=== PATIENT | female | born 1970 ===

== ENCOUNTER 2017-04-15 09:02 | Day surgery (SDC) | payer OTHER ==
[~2017-04-15 09:02] MED LIST: Bupivacaine HCl 0.25% PF (10 ml) Inj ONE; Lidocaine/Epinephrine 1% 1:100000 10 ML IJ ONE; ceFAZolin IV 1 gm in Dextrose 0 GM/0 ML BAG IVPB ONE
[2017-04-15] MEDS ORDERED: ceFAZolin IV 2 gm in Dextrose 2 GM/50 ML BAG IVPB ONE (10:23)
[2017-04-15] MEDS ORDERED: Midazolam 2 MG/2 ML VIAL ONE (10:30)
[2017-04-15] MEDS ORDERED: Propofol 10 mg/ml Inj (20 ML) ONE (10:32)
--- NOTE | 2017-04-15 11:08 | PCM.SURG1 ---
Surgeon's Initial Post Op Note - Surgeon's Notes Surgeon: Dr. Haro [employer] Equipment Erector: PGY1 Pre-Operative Diagnosis: Sebaceous cyst of lower anterior thorax Operative Findings: see op note Post-Operative Diagnosis: as above Operation Performed: excision of sebaceous cyst Specimen/Specimens Removed: sebaceous cyst Estimated Blood Loss: EBL {In ML}: 3 Drains Used: No Drains Post-Op Condition: Good Date of Surgery/Procedure: 04/15/17 Time of Surgery/Procedure: 11:07
[2017-04-15] MEDS ORDERED: HYDROmorphone 0.5 mg/0.5 ml ISec IVP PRN (11:38)
[2017-04-15] MEDS ORDERED: Oxycodone/Acetaminophen 5/325 mg Tab PO ONE (12:00)
[2017-04-15 12:46] VITALS: O2SAT 100
[2017-04-15 13:56] VITALS: PULSE 79; RESP 16
[2017-04-15 13:58] VITALS: BP 108/73; TEMP 97.6
--- NOTE | 2017-04-16 23:53 | OP ---
PROCEDURE DATE: 04/15/2017. PREOPERATIVE DIAGNOSIS: Sebaceous cyst of right lower chest. POSTOPERATIVE DIAGNOSIS: Excision of sebaceous cyst of the right lower chest, 3 x 3 cm size. PROCEDURES: 1. Excision of sebaceous cyst of the right lower chest. 2. Layered closure of the wound, approximately 4 x 2 cm size. SURGEON: Santosh Haro MD. CHIEF TALENT OFFICER: [place] PGY-1 resident . TYPE OF ANESTHESIA: Local anesthesia plus sedation. ESTIMATED BLOOD LOSS: Around 10 mL. DRAINS: None. PATHOLOGY: The sebaceous cyst was sent for pathology. COMPLICATIONS: None. INTRAOPERATIVE FINDINGS: The patient had approximately 3 x 3 cm large sebaceous cyst of the right lower chest. DESCRIPTION OF PROCEDURE: On intraoperative step, this 46-year-old female was diagnosed with a sebaceous cyst of the right lower chest and the patient was consented for the excision of sebaceous cyst, brought to the OR, placed supine on the operating table. After induction of the anesthesia, the right lower chest was prepped and draped in usual sterile fashion. Elliptical incision was made after injecting local anesthesia, approximately 4 x 2 cm size. Upper and lower flap was created and the dissection was carried down medially literally to the underlying fascia and subcutaneous tissue, and the sebaceous cyst was completely excised. Now, the wound was irrigated and now the cavity was closed in a multi layer. Upper flap was sutured to the underlying pressure. Lower flap was sutured to the underlying pressure. The deep subcutaneous was sutured to the underlying fascia, another superficial layer of subcutaneous sutured with a 3-0 Vicryl and skin with 4-0 Monocryl, and dry sterile dressing was applied. The patient tolerated the procedure well. Count of the instrument and gauze was correct. There was no apparent complication. Santosh Haro MD
== END 2017-04-15 13:49 | disposition home or self-care (01) ==
LOC: C.SDS 09:02
PROVIDERS: ATTEND Surgery Surgical Critical Care
DX: L72.3 Sebaceous cyst (principal)
CPT/HCPCS: 11403; 12032; 88304; J0690; J2250; J2704; J3010